=== PATIENT | male | born 1995 | race African-American/Black ===

== ENCOUNTER 2016-06-26 01:15 | Emergency (ER) ==
[2016-06-26 01:21] VITALS: BP 170/90
[2016-06-26] MEDS ORDERED: TORADOL IM ONE (01:27)
[2016-06-26] MEDS ORDERED: DECADRON IM ONE (01:27)
[2016-06-26] MEDS ORDERED: XYLOCAINE-MPF 1% INJ ONE (01:28)
[2016-06-26] MEDS ORDERED: ROCEPHIN IM ONE (01:28)
--- NOTE | 2016-06-26 01:32 | PROVIDER DOCUMENTATION ---
HPI-EENT General - General Chief Complaint: Headache Stated Complaint: HEADACHE Time Seen by Provider: 06/26/16 01:27 Source: patient Allergies/Adverse Reactions: Patient Allergies Allergy/AdvReac Type Severity Reaction Status Date / Time No Known Allergies Allergy Verified 06/26/16 01:21 Home Medications: Home Medication List Medication Instructions Recorded Confirmed Last Taken Type Azithromycin [Zithromax Z-Isaac] 250 mg PO DIRECTED #1 pkg 06/26/16 Unknown Rx Ketorolac [Toradol] 10 mg PO Q6H PRN PRN #6 tablet 06/26/16 Unknown Rx Methylprednisolone [Medrol Dosepak] 4 mg PO DIRECTED #1 package 06/26/16 Unknown Rx - History of Present Illness-EENT General EENT Location: reports: facial Quality of Pain: reports: pressure Severity: reports: moderate Onset/Duration: reports: 24 hours ago Timing: reports: still present, getting worse Prearrival Treatment: Initiated no prearrival treatment Associated Symptoms: reports: cough, facial pain/swelling, nasal congestion/ drainage Other injuries?: denies: neck, head, back, other Locality of Occurance: Home Similar Symptoms Previously?: No Recently seen or treated by another doctor?: No - Eyes Eye Problem Symptoms: denies: eye pain, decrease vision, blurred vision, double vision, curtain, other, burning, itching, sensitivity to light, redness, matting , orbital swelling, eyelid swelling, foreign body sensation - Ears Ear Problem Symptoms: reports: none. denies: earache, hearing loss, ringing in ears, roaring in ears, discharge, other - Throat/Dental Throat/Dental Problem Symptoms: reports: none Review of Systems - Adult - REVIEW OF SYSTEMS - ADULT Constitutional: reports: see HPI. denies: no symptoms reported, chills, fever, fatique, night sweats, weight gain, weight loss, other Eyes: reports: no symptoms reported. denies: see HPI, discharge, dry eyes, decreased vision, blurred vision, double vision, eye pain, redness, other Ears, Nose, Mouth & Throat: reports: see HPI, sinus problem. denies: no symptoms reported, ear discharge, ear pain, hearing loss, tinnitus, epistaxis, nose pain, loose teeth, mouth/dental pain, mouth swelling, hoarseness, throat pain, throat swelling, other Cardiovascular: reports: no symptoms reported. denies: see HPI, chest pain, edema, heart murmur, irregular heart rate, orthopnea, palpitations, poor circulation, PND, syncope, other Respiratory: reports: see HPI, cough. denies: no symptoms reported, chronic cough, dyspnea on exertion, excessive sputum production, hemoptysis, pleurisy, shortness of breath, wheezing, other Genitourinary: reports: no symptoms reported. denies: see HPI, dysuria, discharge, frequency, flank pain, frequent UTI's, hematuria, hesitency, incontinence, urinary retention, urgency, other Musculoskeletal: reports: no symptoms reported. denies: see HPI, bone pain, back pain, frequent leg cramps, joint pain, joint swelling, muscle aches, muscle weakness, neck pain, other All Other Systems: Reviewed and Negative Past History - Adult - PAST MEDICAL HISTORY-ADULT Review of Records: reports: Old Records Reviewed, Nursing Assessment Review, Medications Reviewed, Social history reviewed & non-contributory. Major Childhood Illnesses: reports: denies history Cardiovascular: reports: denies history Respiratory: reports: denies history Gastrointestinal: reports: denies history Obstetrical/Gynecological: reports: denies history Genitourinary: reports: denies history Musculoskeletal: reports: denies history Neurological: reports: denies history Endocrine/Immune: reports: denies history Other Conditions: reports: denies history - PRIOR SURGERIES/PROCEDURES Surgical/Procedure History: reports: orthopedic (extremity) - PRIOR HOSPITALIZATIONS Prior Hospitalizations: reports: none - IMMUNIZATION STATUS Childhood Immunizations: See Nurse Assessment Flu Vaccine: See Nurse Assessment - FAMILY HISTORY Family History: reviewed, not pertinent Physical Exam- EENT - Physical Exam EENT Initial Vital Signs Reviewed: Yes General Appearance: appears well, alert, no apparent distress. negative: mild distress, moderate distress, severe distress, cachetic, obese, thin, anxious, lethargic, slow to respond, obtunded, combative, other Eye Exam: bilateral eye: normal inspection, PERRL, EOMI Ear Exam: bilateral ear: auricle normal, canal normal, TM normal Nasal Exam: normal inspection. negative: active bleeding, discharge, dried blood, foreign body, sinus tenderness, other Throat Exam: normal mouth inspection. negative: pharynx normal, dental tenderness, excessive drooling, foreign body, mandibular swelling, maxillary swelling, pharynx swelling, pharynx tenderness, tongue swollen, tonsillar exudate, tonsillar swelling, trismus, uvula swelling, voice changes, other Neck: non-tender, full range of motion, supple, normal inspection. negative: Brudzinski's sign, carotid bruit, C-spine tenderness, limited range of motion, lymphadenopathy, meningismus, trachial deviation, tender lateral, tender midline , thyromegaly, other Respiratory: chest non-tender, lungs clear, normal breath sounds, no pleuratic chest pain, no respiratory distress, no accessory muscle use. negative: respiratory distress, decreased breath sounds, accessory muscle use, crackles, rales, rhonchi, stridor, wheezing, dull on percussion, prolonged expiration, pain on inspiration, plerual rub, retractions, splinting, decreased rate, increased rate, crepitus, other Cardiovascular: normal peripheral pulses, regular rate, rhythm, no edema, no gallop, no JVD, no murmur. negative: JVD, bradycardia, tachycardia, diastolic murmur, systolic murmur, gallop/S3, gallop/S4, extra beats, friction rub, irregularly irregular, PMI displaced laterally, other Abdominal Exam: normal bowel sounds, non tender, soft, no organomegaly, no pulsatile mass. negative: abdominal bruit, abnormal bowel sounds, distended, guarding, rigid, rebound, tenderness, hernia, mass, hepatomegaly, spleenomegaly , McBurney's point tenderness, Addison's sign, obturator sign, prominent aortic pulsations, psoas, Rovsing's sign, other Lymphatic: no adenopathy. negative: axilla node tender, cervical node tenderness, inguinal node tender, enlargement, striations, streaking, other Back Exam: normal inspection, no CVA tenderness, no vertebral tenderness. negative: CVA tenderness, decreased range of motion, ecchymosis, kyphosis, lordosis, muscle spasm, scoliosis, swelling, vertebral tenderness, other Extremity: normal range of motion, non-tender, normal gait, normal inspection, no pedal edema, no calf tenderness, normal capillary refill. negative: pelvis stable, abnormal NV exam, calf tenderness, deformity, erythema, inflammation, joint effusion, pulse deficit, pedal edema, slow capillary refill, swelling, tenderness, other Integumentary: normal color, normal turgor, warm/dry. negative: abrasion(s), blanching, cyanosis, diaphoresis, decubitus, dependent lividity, ecchymosis, embolic lesions, erythema, signs of IVDA, jaundice, laceration(s), mottled, pallor, petechiae, purpura, rash, swelling, tenderness, warm, zoster-like rash, other Neurologic: grossly normal Psych/Mental Status: oriented x 3 Progress - PLAN OF CARE/RESULTS Progress/Plan/Lab Results: Orders Category Date Time Status CefTRIAXONE [Rocephin] Med 06/26/16 01:28 Discontinued 1 gm IM NOW ONE Dexamethasone [Decadron] Med 06/26/16 01:27 Discontinued 4 mg IM NOW ONE Ketorolac [Toradol] Med 06/26/16 01:27 Discontinued 60 mg IM NOW ONE Lidocaine 1% Pf [Xylocaine-Mpf 1%] Med 06/26/16 01:28 Discontinued 5 ml INJ NOW ONE Vital Signs Temp Pulse Resp BP Pulse Ox 06/26/16 01:18 98.0 F 123 H 20 170/90 100 No Known Allergies Allergy (Verified 06/26/16 01:21) Azithromycin [Zithromax Z-Isaac] 250 mg PO DIRECTED #1 pkg 06/26/16 Ketorolac [Toradol] 10 mg PO Q6H PRN PRN #6 tablet 06/26/16 Methylprednisolone [Medrol Dosepak] 4 mg PO DIRECTED #1 package 06/26/16 Departure - Departure Time of Disposition Order: 01:31 DIAGNOSIS: Sinusitis Qualifiers: Sinusitis location: frontal Chronicity: acute Recurrence: not specified as recurrent Qualified Code(s): J01.10 - Acute frontal sinusitis, unspecified Disposition: HOME 01 Certified Medical Emergency: Emergent Condition: Stable Additional Instructions: ED Follow Up Instructions: You have been treated by a care provider in the Emergency Department. These instructions are being provided to you so you can have an understanding of how to care for yourself upon discharge. Upon discharge from the Emergency Department, you are responsible for making arrangements for follow-up care by a physician of your choice. Take all prescribed medications as directed. Return to the Emergency Department immediately for any new or worsening symptoms. You may call the Physician Referral phone number at [phone] to obtain a list of Physicians who are taking new patients. Prescriptions: Methylprednisolone [Medrol Dosepak] 4 mg PO DIRECTED #1 package Ketorolac [Toradol] 10 mg PO Q6H PRN PRN #6 tablet PRN Reason: Pain Azithromycin [Zithromax Z-Isaac] 250 mg PO DIRECTED #1 pkg Referrals: None,PCP [Primary Care Provider] - Attestation - Physician/ RAMON Attestation Patient care was provided by Advanced Practice Provider:: Yes Advanced Practice Provider:: Clark Peng Advanced Practice Provider documentation review:: The Mid-level provider documentation, treatment plan and medical decision making was reviewed by the physician who agrees with all treatment and medical decision making by the MLP. Physician Attestation - Physician Attestation I, the provider, attest to the following statement:: Clark Peng Physician documentation Attestation:: This documentation recorded by the scribe accurately reflects the service I personally performed and the decisions made by me.
== END 2016-06-26 01:54 | disposition home or self-care (01) ==
LOC: P.ED 01:15
DX: J01.10 Acute frontal sinusitis, unspecified (principal); R51 Headache; R05 Cough; R09.81 Nasal congestion
CPT/HCPCS: 96372; J0696; J1100; J1885